=== PATIENT | female | born 1970 | race Caucasian/White ===

== ENCOUNTER → 2018-05-15 08:03 | Outpatient (CLI) | payer OTHER, SELFPAY ==
--- NOTE | 2018-05-15 08:04 | ECHOD_ITS ---
Reason For Study: ARRHYTHMIA Procedure This was a 2D Doppler, Color Flow transthoracic echocardiogram. Exam performed in department. Left Ventricle Normal size and thickness. The estimated ejection fraction is 55 %. Stage 1 diastolic dysfunction. No regional wall motion abnormalities noted. Right Ventricle Normal size and thickness. Normal systolic function. Atria Normal left atrium. Normal right atrium. Normal atrial septum. Mitral Valve The mitral valve is structurally normal. No prolapse or stenosis seen. Trivial mitral valve insufficiency. Tricuspid Valve Normal tricuspid valve. Trivial tricuspid valve insufficiency. Right ventricular systolic pressure estimated to be 17 mmHg. Aortic Valve Trisinus/trileaflet aortic valve. Normal aortic valve. Pulmonic Valve Normal pulmonic valve. Great Vessels Normal aortic root. Normal arch. Normal inferior vena cava. Inferior vena cava collapse with sniff. Pericardium/Pleural No pericardial effusion. MMode/2D Measurements & Calculations LVIDd: 4.6 cm IVSd: 0.93 cm Ao root diam: 2.5 cm LVIDs: 3.3 cm LVPWd: 0.93 cm LA dimension: 3.4 cm RVDd: 2.6 cm FS: 27.3 % LAV(MOD-bp): 33.6 ml LA A4 area: 12.7 cm2 RA A4 area: 9.9 cm2 LAV(MOD-bp) Indexed: 19.3 ml/m2 LAV(MOD-sp2): 32.0 ml LAV(MOD-sp4): 32.0 ml Doppler Measurements & Calculations MV E max efra: 57.0 cm/sec Lat Peak E' Efra: 6.1 cm/sec Med Peak E' Efra: 6.5 cm/sec MV A max efra: 72.1 cm/sec E/E' lat: 9.3 E/E' med: 8.8 MV E/A: 0.79 Ao V2 max: 116.1 cm/sec LV V1 max: 93.6 cm/sec PA V2 max: 86.5 cm/sec Ao max P.4 mmHg LV V1 max P.5 mmHg TR max efra: 172.4 cm/sec TR max P.9 mmHg Interpretation Summary The estimated ejection fraction is 55 %. Right ventricular systolic pressure estimated to be 17 mmHg. Stage 1 diastolic dysfunction. There is no comparison study available. The study was technically difficult. Ordering Physician: Jon Fonseca Referring Physician: Hermila Browning Performed By: Genoveva Pedro, NICOLA, RVT
== END ==
PROVIDERS: Family Provider Physician Assistant; PCP Physician Assistant; Referring Provider Internal Medicine Cardiovascular Disease; Visit Provider Internal Medicine Cardiovascular Disease
DX: R00.2 Palpitations (principal); I45.6 Pre-excitation syndrome; Z82.49 Family history of ischemic heart disease and other diseases of the circulatory system
CPT/HCPCS: 93306

== ENCOUNTER → 2018-05-22 10:40 | Outpatient (CLI) | payer OTHER, SELFPAY ==
--- NOTE | 2018-05-22 10:41 | STEWCON_ITS ---
Reason For Study: FAMILY HX Stress Results Protocol: Jhony Protocol Maximum Predicted HR: 175 bpm Target HR: 149 bpm% Max imum Predicted HR: 102 % DurationHeart Rate Stage (mm:ss) (bpm) BPCom ment BASELINE 85 122/82 0.2 ML DEFINITY STAGE 1 3:00 12 2 130/70 STAGE 2 3:00 15 0 142/60 STAGE 3 3:00 17 9 150/620.2 ML DEFINITY RECOVERY 105 120/8 0 Stress Duration: 9:00 mm:ss Maximum Stress HR: 179 bpm Baseline Echocardiogram Findings The estimated ejection fraction is 65 %. Stress Echo Wall motion Data Resting WMIntermediate WMStress WM Resting Wall Motion Wall Motion Stress No regional wall motion No regional wall motion abnormalities noted. abnormalities noted. EKG Data The baseline ECG displays normal sinus rhythm. The patient exercised according to the regular Jhony protocol for a total duration of 9:00. The maximum heart rate attained was 190 beats per minute. This was 108% of maximum predicted heart rate. The patient exercised into stage 4 of the Jhony protocol. During stress, there were no ST or T wave changes noted to suggest ischemia. During dobutamine infusion, there were no ST or T wave changes noted to suggest ischemia. No clinical angina was noted. Interpretation Summary There is no comparison study available. Contrast injection was performed. The study was technically difficult. The estimated ejection fraction is 65 %. Normal adequate treadmill echocardiogram. Negative for ischemia by EKG and echocardiographic criteria. No anginal symptoms noted. No arrhythmias noted. Appropriate blood pressure response to exercise. Average exercise capacity for age. Final LVEF of 65%. Decreased sensitivity due to poor echo windows requiring Definity enhancement. Test terminated due to dyspnea and leg fatigue. Ordering Physician: Jon Fonseca Referring Physician: Jon Fonseca Performed By: Mercy Martin, NICOLA, RVT
== END ==
PROVIDERS: Family Provider Physician Assistant; PCP Physician Assistant; Referring Provider Internal Medicine Cardiovascular Disease; Visit Provider Internal Medicine Cardiovascular Disease
DX: E78.5 Hyperlipidemia, unspecified (principal); I45.6 Pre-excitation syndrome; R00.2 Palpitations; Z82.49 Family history of ischemic heart disease and other diseases of the circulatory system
CPT/HCPCS: 93017; 93350; J7030; Q9957; A4216; C8928

== ENCOUNTER → 2018-06-16 20:36 | Outpatient (CLI) | payer OTHER, SELFPAY | PROVIDERS: Family Provider Physician Assistant; PCP Physician Assistant; Visit Provider Internal Medicine Cardiovascular Disease | DX: R06.83 Snoring (principal); R00.2 Palpitations; R06.81 Apnea, not elsewhere classified | CPT/HCPCS: 95810 ==

== ENCOUNTER → 2018-07-06 12:17 | Outpatient (CLI) | payer OTHER, SELFPAY ==
[2018-07-03 12:44] VITALS: BMI 27.8
[2018-07-06 13:20] LABS: AST(SGOT) 16 U/L (15-37); Alanine Aminotransfer ALT/SGPT 26 U/L (13-56); Albumin, Serum 3.9 g/dL (3.2-5.0); Alkaline Phosphatase 70 U/L (45-117); Bilirubin, Direct 0.14 mg/dL (0.00-0.30); Cholesterol 166 mg/dL (200); Globulin 3.5 g/dL (2.2-4.2); High Density Lipoprotein 51 mg/dL; Protein, Total 7.4 g/dL (6.4-8.2); Triglycerides 68 mg/dL; Very Low Density Lipoprotein 14 mg/dL (5-40)
== END ==
PROVIDERS: Family Provider Physician Assistant; PCP Physician Assistant; Referring Provider Internal Medicine Cardiovascular Disease; Visit Provider Internal Medicine Cardiovascular Disease
DX: E78.5 Hyperlipidemia, unspecified (principal); Z82.49 Family history of ischemic heart disease and other diseases of the circulatory system
CPT/HCPCS: 36415; 80061; 80076

== ENCOUNTER → 2018-07-31 12:58 | Outpatient (CLI) | payer OTHER, SELFPAY ==
[2018-07-03 12:44] VITALS: BMI 27.8
--- NOTE | 2018-08-02 11:15 | PFT ---
INTRODUCTION: The patient is a 48-year-old female who presents for pulmonary function testing secondary to a diagnosis of the echo use. Respiratory therapy reports good patient effort. Bronchodilators were used during testing. INTERPRETATION: Forced expiration spirometry demonstrates no evidence of a large airways obstructive ventilatory defect. There was no significant response to aerosolized bronchodilators, based upon strict ATS criteria. Spirograms are of good quality and plateau normally. The respiratory flow volume loop appears normal. Body plethysmography was performed and reveals lung volumes to be within normal limits. Diffusing capacity by single breath CO is also within normal limits at 95% of predicted. IMPRESSION: Grossly normal pulmonary function studies.
== END ==
PROVIDERS: Family Provider Physician Assistant; PCP Physician Assistant; Referring Provider Nurse Practitioner Acute Care; Visit Provider Nurse Practitioner Acute Care
DX: Z72.0 Tobacco use (principal)
CPT/HCPCS: 94060; 94726; 94729

== ENCOUNTER → 2018-10-17 15:07 | Outpatient (CLI) | payer OTHER, SELFPAY ==
[2018-09-20 09:47] VITALS: BMI 28.0
== END ==
PROVIDERS: Family Provider Physician Assistant; PCP Physician Assistant; Referring Provider Internal Medicine Critical Care Medicine; Visit Provider Internal Medicine Critical Care Medicine
DX: Z09 Encounter for follow-up examination after completed treatment for conditions other than malignant neoplasm (principal)
CPT/HCPCS: 98960; G0463

== ENCOUNTER → 2019-01-23 10:34 | Outpatient (CLI) | payer OTHER, SELFPAY ==
[2019-01-23 10:09] VITALS: BMI 27.1
[2019-01-23 11:56] LABS: AST(SGOT) 24 U/L (15-37); Alanine Aminotransfer ALT/SGPT 32 U/L (13-56); Albumin, Serum 4.1 g/dL (3.2-5.0); Alkaline Phosphatase 88 U/L (45-117); Bilirubin, Direct 0.12 mg/dL (0.00-0.30); Cholesterol 170 mg/dL (200); Globulin 3.4 g/dL (2.2-4.2); High Density Lipoprotein 54 mg/dL; Protein, Total 7.5 g/dL (6.4-8.2); Triglycerides 61 mg/dL; Very Low Density Lipoprotein 12 mg/dL (5-40)
== END ==
PROVIDERS: Family Provider Physician Assistant; PCP Physician Assistant; Referring Provider Internal Medicine Cardiovascular Disease; Visit Provider Radiology Diagnostic Radiology
DX: E78.5 Hyperlipidemia, unspecified (principal)
CPT/HCPCS: 36415; 80061; 80076

== ENCOUNTER → 2020-08-29 10:51 | Outpatient (CLI) | payer SELFPAY ==
[2020-08-29 10:17] VITALS: BMI 24.7
[2020-08-29 12:12] LABS: AST(SGOT) 13 U/L (15-37); Alanine Aminotransfer ALT/SGPT 22 U/L (13-56); Albumin, Serum 3.8 g/dL (3.2-5.0); Alkaline Phosphatase 70 U/L (45-117); Bilirubin, Direct 0.07 mg/dL (0.00-0.30); Cholesterol 171 mg/dL (200); Globulin 3.5 g/dL (2.2-4.2); High Density Lipoprotein 63 mg/dL; Protein, Total 7.3 g/dL (6.4-8.2); Triglycerides 43 mg/dL; Very Low Density Lipoprotein 9 mg/dL (5-40)
== END ==
PROVIDERS: PCP Physician Assistant; Referring Provider Physician Assistant Medical; Visit Provider Physician Assistant Medical
DX: E78.5 Hyperlipidemia, unspecified (principal)
CPT/HCPCS: 36415; 80061; 80076

== ENCOUNTER → 2022-02-12 | Outpatient (REF) | payer SELFPAY ==
[2022-02-12 11:10] LABS: Absolute Lymphocyte Count 1.67 X10^3/uL (0.83-4.51); Absolute Neutrophil Count 4.5 X10^3/uL (2.0-7.7); Basophil# 0.02 X10^3/uL; Basophil% 0.3 % (0-1); Eosinophil# 0.04 X10^3/uL; Eosinophils% 0.6 % (0-5); Hematocrit 46.9 % (37-47); Hemoglobin 15.4 g/dL (12.0-15.0); Lymphocyte # 1.67 X10^3/ul; Lymphocyte % 24.7 % (19-41); Mean Corp Hgb Conc 32.8 g/dL (32-36); Mean Corpuscular Hgb 30.4 pg (27.0-32.0); Mean Corpuscular Volume 92.7 fL (81-99); Mean Platelet Vol. 10.3 fl (6.2-12.0); Monocyte# 0.53 X10^3/uL; Monocyte% 7.9 % (0-10); NRBC Flagged by Analyzer 0 % (0-5); Neutrophil # 4.47 X10^3/uL (2.7-7.7); Neutrophil % 66.2 % (47-70); Platelet Count 276 K/mm3 (150-450); RBC Distribution Width CV 13.4 % (11.6-14.6); RBC Distribution Width SD 46.1 fl (35.1-43.9); Red Blood Count 5.06 M/mm3 (4.2-5.4); White Blood Count 6.8 K/mm3 (4.4-11.0)
[2022-02-12 11:15] LABS: ALB/GLOB Ratio 1.3 RATIO (0.9-2.4); AST(SGOT) 15 U/L (15-37); Alanine Aminotransfer ALT/SGPT 22 U/L (13-56); Albumin, Serum 4.1 g/dL (3.2-5.0); Alkaline Phosphatase 70 U/L (45-117); Anion Gap 6 (5-15); BUN 12 mg/dL (7-18); BUN/Creat Ratio 19.3 RATIO (10-20); Bilirubin, Direct 0.11 mg/dL (0.00-0.30); Calcium,Total 9.2 mg/dL (8.5-10.1); Chloride 106 mmol/L (98-107); Cholesterol 144 mg/dL (200); Creatinine, Serum 0.62 mg/dL (0.55-1.02); EST Glomerular Filtration Rate 108 mL/min (>60); Est Glom Filt Rate - Afr Amer 131 mL/min (>60); Globulin 3.2 g/dL (2.2-4.2); Glucose 94 mg/dL (74-106); High Density Lipoprotein 47 mg/dL; LDH 168 U/L (84-246); Phosphorus 3.8 mg/dL (2.5-4.9); Potassium 4.2 mmol/L (3.5-5.1); Protein, Total 7.3 g/dL (6.4-8.2); Sodium Level 140 mmol/L (136-145); Triglycerides 56 mg/dL; Uric Acid 3.8 mg/dL (2.6-6.0); Very Low Density Lipoprotein 11 mg/dL (5-40)
== END | disposition home or self-care (01) ==
LOC: LAB 09:54
PROVIDERS: PCP Physician Assistant; Visit Provider Physician Assistant
DX: Z00.00 Encounter for general adult medical examination without abnormal findings (principal)

== ENCOUNTER → 2023-08-24 | Outpatient (CLI) | payer OTHER, SELFPAY ==
--- OUTSIDE RECORDS SUMMARY | 2023-08-24 13:33 | XMS RPT_ITS | CCD ---
Author Name Unknown Address [address] [place] [address] Organization [facility] Care Team Providers Care Er Manager Name Role Phone EMPLOYEE, HEALTH Unavailable Unavailable EMPLOYEE, HEALTH Unavailable Unavailable EMPLOYEE, HEALTH Unavailable Unavailable DIEGO MERRITT S Admitting Unavailable DIEGO MERRITT S Attending Unavailable ANNE COLON Referring Unavailable GLO MERRITTS S Primary Care Unavailable ANNE COLON Consulting Unavailable PROVIDER, UNKNOWN Consulting Unavailable PROVIDER, UNKNOWN Consulting Unavailable PROVIDER, UNKNOWN Consulting Unavailable Hermila Browning PA-C Unavailable Hermila Browning PA-C Unavailable Cardiology Provider Unavailable Unavailable Ida LOPES, Nia Unavailable Unavailable Liyah COUNSEL, Eli Unavailable Kaiden WESTON, Teo Marquez Unavailable Joshua YEPEZ, Darcie Davila Unavailable Unavailable Ismael CHON, Mia Unavailable Unavailable Anne Colon MD Unavailable Anthony LOPES, Cassandra Diana Unavailable Unavaila ble Rayray COUNSEL, Esvin Unavailable Unavailable Severo COUNSEL, Mariam K Unavailable Unavai tony Palafox COUNSEL, Rafaeal Moreno Unavailable Unavailab le Rakesh COUNSEL, Joy Charles Unavailable Unavailab ben Nazario LPN, Zaira Unavailable Unavailiman Fenton COUNSEL, Kayli Walker Unavailable Unavaila ble Unavailable Unavailable Medications Current Medications Medication Drug Class(es) Dates Sig (Normalized) Sig (Original) atorvastatin 10 mg oral tablet (1 source) HMG-CoA Reductase Inhibitor Start: 04-29-2023 atorvastatin 10 mg tablet ; 1 (one) tablet daily for 0 days Quantity: 90 {Tablet} Refills: 3 Ordered: 29-Apr-2023 CLAY Browning Start: 29-Apr-2023 citalopram 20 mg oral tablet (3 sources) Serotonin Reuptake Inhibitor Start: 12-17-2021 citalopram 20 mg tablet ; 1 Tablet daily for 0 days Quantity: 90 {Tablet} Refills: 1 Ordered: 29-Apr-2023 CLAY Browning Start: 29-Apr-2023 Completed/Discontinued Medications Medication Drug Class(es) Dates Sig (Normalized) Sig (Original) 12 hr buPROPion hydrochloride 150 mg extended release oral tablet (1 source) Aminoketone Start: 11-30-2018 End: 02-12-2020 take 1 tablet by mouth once daily Wellbutrin SR 150 MG Oral Tablet Extended Release 12 Hour ; 1 Tablet daily for 90 days Quantity: 90 {Tablet} Refills: 1 Ordered: 12-Feb-2020 LUCHO Guevara Start: 30-Nov-2018 End: 12-Feb-2020 Status: Inactive cholecalciferol 0.05 mg oral capsule (1 source) Vitamin D take 1 capsule by mouth once daily VITAMIN D, 2000UNIT (Oral Capsule) ; 1 daily (2000 UNIT) Status: Inactive permethrin 50 mg/ml topical cream (1 source) Pyrethroid Start: 03-09-2013 End: 05-07-2014 ELIMITE, 5% (External Cream) ; 1 application(s) to entire body from neck to toes at bedtime, rinse off in morning for 0 days Quantity: 2 {ounce(s)} Refills: 2 Ordered: 07-May-2014 LUCHO Fenton Start: 09-Mar-2013 End: 07-May-2014 Status: Inactive VITAMINS (PO Tablet) (1 source) take 1 tablet by mouth once daily VITAMINS (PO Tablet) ; 1 daily Status: Inactive sertraline 50 mg oral tablet (2 sources) Serotonin Reuptake Inhibitor Start: 02-12-2020 End: 04-05-2020 take 1 tablet by mouth once daily Sertraline HCl 50 MG Oral Tablet ; 1 (one) Tablet daily for 0 days Quantity: 90 {Tablet} Refills: 1 Ordered: 05-Apr-2020 Start: 12-Feb-2020 End: 05-Apr-2020 Status: Inactive Problems Active Problems Problem Classification Problem Date Documented Da te Episodic/Chronic Anxiety disorders (3 sources) Anxiety; Translations: [Anxiety disorder, unspecified] 04-29-2023 Chronic Diabetes mellitus without complication (4 sources) Hyperglycemia; Translations: [Hyperglycemia, unspecified] 04-29-2023 Episodic Disorders of lipid metabolism (7 sources) Hyperlipidemia; Translations: [Hyperlipidemia, unspecified] 04-29-2023 Chronic Inflammation; infection of eye (except that caused by tuberculosis or sexually transmitteddisease) (1 source) Conjunctivitis; Translations: [Other mucopurulent conjunctivitis, unspecified eye] 07-18-2015 Episodic Mood disorders (16 sources) Depressive disorder; Translations: [Depressive disorder, not elsewhere classified] 04-29-2023 Chronic Other infections; including parasitic (1 source) Scabies 03-09-2013 Episodic Other screening for suspected conditions (not mental disorders or infectious disease) (9 sources) Patient encounter status; Translations: [Encounter for screening for malignant neoplasm of colon] 04-29-2023 Episodic Residual codes; unclassified (4 sources) Obstructive sleep apnea syndrome; Translations: [Obstructive sleep apnea (adult) (pediatric)] 04-29-2023 Chronic Residual codes; unclassified (3 sources) Family history of cardiac disorder; Translations: [Family history of ischemic heart disease and other diseases of the circulatory system] 04-29-2023 Episodic Unclassified (1 source) Unknown / UNK(Unknown) Onset: 02-09-2017 Unclassified (1 source) deliveries 04-29-2023 Past or Other Problems Problem Classification Problem Date Documented Date Episodic/Chronic Mood disorders (1 source) Mood disorders 06-23-2011 Unclassified (1 source) ALLERGIC REACTION/TRIAGE Onset: 02-09-2017 Unclassified (1 source) Well adult female - The patient feels well with no complaints, has good energy level and is sleeping well. The patient has a balanced diet and takes supplemental vitamins. The patient does not exercise. The patient sleeps 8 hours per night. Note for Well adult female : Pt is only having occasional periods, some hot flashes and insomnia - mild and manageable. 04-29-2023 Unclassified (1 source) Well adult female - The patient feels well with no complaints, has good energy level and is sleeping well. The first day of the last menstrual period was : (12/05/2021). The current method of contraception is: tubal ligation. The patient has a balanced diet and takes supplemental vitamins. The patient exercises 3 - 4 times per week (2-3). The patient sleeps 9 hours per night. 12-17-2021 Unclassified (1 source) Follow up for multiple chronic conditions - The patient is here for follow-up of depression (just got changed to wellbutrin about 1 -2 wks ago, is supposed to be taking it two times daily but states that she can't take it bid - she couldn't sleep and plus had too much energy), hyperlipidemia and other condition(s) (hyperglycemia). The patient always takes the prescribed medications. No side effects noted. The patient has an active lifestyle but no regular exercise program. The patient's dietary compliance is fairly good usually adhering to recommendations. The patient states that breathing effort is stable, there is no recent angina or dyspnea, there are no vision changes or weakness, mood is unchanged (She stopped her sertraline x 1 day (no taper) and then started wellbutrin (started immediately on the 150mg BID dosing). She started on the wellbutrin to help her quit smoking - is already down to 1 cig/day. Feeling irritable right now.) and they do not have headaches. Note for Multiple chronic conditions follow-up : Last office visit 04/19/2018. 10-02-2018 Unclassified (1 source) [ADDITIONAL REASON] Transition into care - The patient is transitioning into care from another physician (05/02/2018 bcnupt14/3/18 pulmonology) and a summary of care was reviewed. 10-02-2018 Unclassified (1 source) Well adult female - The patient feels well with no complaints, has good energy level and is sleeping well. The first day of the last menstrual period was : (month ago and states that it is regular. She has female in kassandra 2014 .). The patient has a balanced diet and takes supplemental vitamins (sometimes). The patient does not exercise. The patient sleeps 8 hours per night. 04-19-2018 Unclassified (1 source) Well Adult, female - The patient feels well with no complaints, has good energy level and is sleeping well. The first day of the last menstrual period was : (09/2013-). The patient has a balanced diet and takes supplemental vitamins. The patient exercises 3 - 4 times per week. The patient sleeps 7 hours per night. Note for Well Adult, female : Work insurance physical. 05-07-2014 Unclassified (1 source) Rash - The onset of the rash has been acute and has been occurring in a persistent pattern for 3 weeks. The course has been increasing. The rash is characterized as red and raised above the skin (fine). The rash was first seen on the upper extremity (left hand). It spread to the entire body, the trunk and the upper extremity. There has been associated itching. There has been associated itching, while there has been no fever. 03-09-2013 Unclassified (1 source) Anxiety - The onset of the anxiety has been sudden and has been occurring in an intermittent pattern for 15 years. The course has been constant. The anxiety is characterized as apprehension (wakes in middle of night with heart pounding) and nervousness. There are no specific phobias. There were no precipitating factors. The symptoms have been associated with agitation, lightheadedness, nausea and palpitations. 05-28-2011 Results Test Name Value Interpretation Reference Range Facil ity Vital Signs Date Time Vital Sign Value Performing Clinician Delaneyi rafael 04-29-2023 14:040 Body height 162.56 cm Joy Cameron LPN [facility], [facility].; [facility], [facility]. 04-29-2023 14:040 Body mass index (BMI) [Ratio] 26.43 kg/m2 Joy Cameron LPN [facility], [facility].; [facility], [facility]. 04-29-2023 14: Body surface area Derived from formula 1.75 m2 Joy Cameron LPN [facility], [facility].; [facility], [facility]. 04-29-2023 14:040 Body weight 69.85 kg Joy Cameron LPN [facility], [facility].; [facility], [facility] 04-29-2023 14:040 Diastolic blood pressure 72 mm[Hg] Joy Cameron LPN [employer].; [employer]. Encounters Encounter Date Encounter Type Care Provider Facility Start: 04-29-2023 End: 04-29-2023 Manual pelvic examination Joy Cameron LPN [facility].; [employer]. Start: 04-29-2023 End: 04-29-2023 Patient encounter procedure Hermila Browning PA-C Work Phone: [facility]. Start: 01-25-2023 End: 01-25-2023 Orders Hermila Browning PA-C Work Phone: [employer]. Start: 12-17-2021 End: 12-17-2021 Patient encounter procedure Hermila Browning PA-C Work Phone: [employer]. Start: 12-17-2021 End: 12-17-2021 Patient encounter status Hermila Browning PA-C Work Phone: [employer].; [employer]. Start: 07-30-2020 End: 07-30-2020 Medication Hermila Browning PA-C Work Phone: [employer]. Start: 10-26-2019 End: 10-26-2019 Medication Hermila Browning PA-C Work Phone: [employer]. Start: 01-10-2019 End: 01-10-2019 Telephone follow-up Hermila Browning PA-C Work Phone: [employer]. Start: 01-09-2019 End: 01-09-2019 Emergency department patient visit DIEGO Maxim [facility] Start: 11-30-2018 End: 11-30-2018 Medication Hermila Browning PA-C Work Phone: [employer]. Start: 11-01-2018 End: 11-01-2018 Medication Hermila Browning PA-C Work Phone: [employer]. Start: 10-02-2018 End: 10-02-2018 Office outpatient visit 15 minutes Hermila Browning PA-C Work Phone: [employer]. Start: 04-19-2018 End: 04-19-2018 Patient encounter procedure Hermila TOBARC Work Phone: [employer].; [employer] Start: 04-19-2018 End: 04-19-2018 Periodic preventive med est patient 40-64yrs Hermila Browning PA-C Work Phone: [employer]. Start: 04-11-2017 End: 04-11-2017 Historical Summary Hermila Browning PA-C Work Phone: [employer]. Start: 03-31-2017 End: 03-31-2017 Orders Hermila Browning PA-C Work Phone: [employer]. Start: 03-21-[address]EMPLOYEE [facility] Start: 03-17-2017 End: 03-17-2017 Orders Hermila MERLOS-C Work Phone: [employer]. Start: 02-09-2017 Emergency department patient visit Facility:[facility] Start: 12-31-2016 End: 12-31-2016 Office outpatient visit 15 minutes Hermila Browning PA-C Work Phone: [employer]. Start: 07-18-2015 End: 07-18-2015 Medication Hermila Browning PA-C Work Phone: [employer]. Start: 05-21-2015 End: 05-21-2015 Patient encounter procedure Hermila Browning PA-C Work Phone: [employer]. Start: 05-20-2015 End: 05-20-2015 Historical Summary Hermila Browning PA-C Work Phone: [employer]. Start: 05-07-2014 End: 05-07-2014 Medical examinations/reports status Hermila Haganer PA-C Work Phone: [employer].; [facility] Start: 05-07-2014 End: 05-07-2014 Patient encounter procedure Hermila Browning PA-C Work Phone: [employer] Start: 03-09-2013 End: 03-09-2013 Patient encounter procedure Hermila Browning PA-C Work Phone: [employer] Start: 07-05-2012 End: 07-05-2012 Patient encounter procedure Hermila Browning PA-C Work Phone: [employer] Start: 06-18-2011 End: 06-23-2011 Patient encounter procedure Hermila Browning PA-C Work Phone: [employer] Start: 05-28-2011 End: 05-28-2011 Patient encounter procedure Hermila Browning PA-C Work Phone: [employer] Patient encounter status Joy francis LPN [employer]; [employer] Procedures Date Procedure Procedure Detail Performing Clinician Start: 04-29-2023 End: 04-29-2023 Depression screening Hermila Haganer PA -C Work Phone: Start: 04-29-2023 End: 04-29-2023 Scr dep neg, no plan reqd Hermila Hagan er PA-C Work Phone: Start: 12-17-2021 End: 12-17-2021 Depression screening Hermila Haganer PA -C Work Phone: Start: 12-17-2021 End: 12-17-2021 Scr dep neg, no plan reqd Hermila Molina Palm er PA-C Work Phone: Start: 07-06-2018 End: 07-06-2018 Lipid panel Joy Walker Plan of Treatment Date Care Activity Detail Author Start: 04-29-2023 Oncology colorectal screening gaye 10 dna markrs COLOGUARD COLON CANCER SCREENING USING STOOL DNA AT POINT OF CARE (55396) Start: 29-Apr-2023 Intent [employer].; [employer]. Start: 01-25-2023 Comprehensive metabo lic panel CMP w/ GFR* ([id number]) Start: 25-Jan-2023 Request [employer] [employer]. Start: 01-25-2023 Lipid panel LIPID PANEL ([id number]) Start: 25-Jan-2023 Request [employer] [employer]. Start: 01-25-2023 Screening mammograph y bi 2-view breast inc cad Mammogram Bilateral Screening ([id number]) Start: 25-Jan-2023 Intent [employer] [employer] Immunizations Immunization Date Immunization Notes Care Provider Fa cility influenza, seasonal, injectable Hermila Browning PA-C Work Phone: [employer].; [employer] Payers Date Payer Category Payer Unknown [id number] 1970 Unknown [id number] Unknown [id number] Unknown [facility] Social History Date Type Detail Facility Alcohol Use: Alcohol Use: ; Drinks wine. [employer]. Caffeine Use Caffeine Use [employer]. Tobacco Use: Tobacco Use: ; C urrent every day smoker. [employer] [employer]. Female [employer]. Work Phone: Drinks wine [employer] [employer]. Work Phone: Smokes tobacco daily [employer].; [employer]. Work Phone: Ex-smoker [employer].; [employer]. Work Phone: Summary Purpose Family History Colon Cancer Status:Active Comments:grandmo ther Coronary Artery Disease Status:Active Comments :Father. Mother. grandfather, uncle;Dad at age 51 from [place]. Diabetes Mellitus Type II Status:Active Commen ts:Father. Hypertension Status:Active Comments:Father. grandfather,uncle Advance Directives No Advanced Directives Records FoundNo Advanced Directives Records FoundNo Advanced Directives Records FoundNo Advanced Directives Records Found Additional Source Comments INFORMATION SOURCE (unrecogn ized section and content) DATE CREATED AUTHOR AUTHOR'S ORGANIZ ATION 01/25/2018 [facility] DATE CREATED AUTHOR AUTHOR'S ORGANIZ ATION 03/13/2019 [facility] DATE CREATED AUTHOR AUTHOR'S ORGANIZ ATION 05/07/2023 [facility] FOR RECORDS PERTAINING TO PATIENTS WHO ARE OR HAVE BEEN ENROLLED IN A CHEMICAL DEPENDENCY/SUBSTANCEABUSE PROGRAM, SOME INFORMATION MAY BE OMITTED. This clinical summary was aggregated from multiple sources. Caution should be exercised in using it in the provision of clinical care. This summary normalizes information from multiple sources, and as a consequence, information in this document may materially change the coding, format and clinical context of patient data. In addition, data may be omitted in some cases. CLINICAL DECISIONS SHOULD BE BASED ON THE PRIMARY CLINICAL RECORDS. [facility] [employer] provides no warranty or guarantee of the accuracy or completeness of information in this document.
[2023-08-24 14:18] LABS: Absolute Lymphocyte Count 1.59 X10^3/uL (0.83-4.51); Basophil# 0.02 X10^3/uL; Basophil% 0.4 % (0-1); Eosinophil# 0.04 X10^3/uL; Eosinophils% 0.8 % (0-5); Hematocrit 44.8 % (37-47); Hemoglobin 14.8 g/dL (12.0-15.0); Lymphocyte # 1.59 X10^3/ul (0.83-4.51); Lymphocyte % 31.7 % (19-41); Mean Corpuscular Hgb 30.2 pg (27.0-32.0); Mean Corpuscular Volume 91.4 fL (81-99); Mean Platelet Vol. 10.3 fl (6.2-12.0); NRBC Flagged by Analyzer 0 % (0-5); Neutrophil # 2.97 X10^3/uL (2.7-7.7); Neutrophil % 59.1 % (47-70); Platelet Count 264 K/mm3 (150-450); RBC Distribution Width SD 44.1 fl (35.1-43.9)
[2023-08-24 15:20] LABS: ALB/GLOB Ratio 1.2 RATIO (0.9-2.4); AST(SGOT) 16 U/L (15-37); Alanine Aminotransfer ALT/SGPT 29 U/L (13-56); Albumin, Serum 4.3 g/dL (3.2-5.0); Alkaline Phosphatase 83 U/L (45-117); Anion Gap 3 (5-15); BUN 12 mg/dL (7-18); BUN/Creat Ratio 19.2 RATIO (10-20); CPK Total, Creatine Kinase 59 U/L (26-192); Calcium,Total 9.4 mg/dL (8.5-10.1); Chloride 108 mmol/L (98-107); Cholesterol 181 mg/dL (200); Creatinine, Serum 0.62 mg/dL (0.55-1.02); EST Glomerular Filtration Rate 107 mL/min (>60); Est Glom Filt Rate - Afr Amer 129 mL/min (>60); Globulin 3.5 g/dL (2.2-4.2); Glucose 93 mg/dL (74-106); High Density Lipoprotein 72 mg/dL; Potassium 3.7 mmol/L (3.5-5.1); Protein, Total 7.8 g/dL (6.4-8.2); Sodium Level 136 mmol/L (136-145); Thyroid Stim Hormone (TSH) 0.94 uIU/mL (0.358-3.74); Triglycerides 64 mg/dL; Very Low Density Lipoprotein 13 mg/dL (5-40)
== END | disposition home or self-care (01) ==
PROVIDERS: PCP Physician Assistant; Referring Provider Internal Medicine Cardiovascular Disease; Visit Provider Internal Medicine Cardiovascular Disease
DX: E78.5 Hyperlipidemia, unspecified (principal); R00.2 Palpitations; G47.33 Obstructive sleep apnea (adult) (pediatric); I45.6 Pre-excitation syndrome; Z72.0 Tobacco use; R07.9 Chest pain, unspecified
CPT/HCPCS: 36415; 80053; 80061; 82550; 84443; 85025

== ENCOUNTER → 2023-09-30 | Outpatient (CLI) | payer OTHER, SELFPAY ==
--- NOTE | 2023-09-30 13:02 | ECHOD_ITS ---
Reason For Study: Palpitations Procedure This was a 2D Doppler, Color Flow transthoracic echocardiogram. Exam performed in department. Left Ventricle Normal size and thickness. Mild global left ventricular systolic dysfunction. The left ventricular ejection fraction is 45 %. Normal diastololic function. Right Ventricle Normal right ventricle. Atria The left and right atria are normal. Mitral Valve Trivial mitral valve insufficiency. Tricuspid Valve Trivial tricuspid valve insufficiency. Unable to estimate RV systolic pressure due to insufficient tricuspid regurgitant envelope. Aortic Valve Trisinus/trileaflet aortic valve. Pulmonic Valve The pulmonic valve is not well visualized. Great Vessels Normal sized aortic root. Pericardium/Pleural No pericardial effusion. MMode/2D Measurements & Calculations LVIDd: 4.8 cm IVSd: 0.87 cm Ao root diam: 2.6 cm LVIDs: 3.2 cm LVPWd: 0.75 cm LA dimension: 3.5 cm RVDd: 3.3 cm FS: 33.7 % LAV(MOD-bp): 46.6 ml LVAd ap4: 24.2 cm2 SV(MOD-sp4): 38.8 ml LAV(MOD-bp) Indexed: 26.6 ml/m2 LVLd ap4: 6.7 cm LAV(MOD-sp2): 48.9 ml EDV(MOD-sp4): 71.3 ml LAV(MOD-sp4): 42.4 ml EDV(sp4-el): 74.1 ml LVAs ap4: 14.7 cm2 LVLs ap4: 5.5 cm ESV(MOD-sp4): 32.5 ml ESV(sp4-el): 33.2 ml EF(MOD-sp4): 54.4 % EF(sp4-el): 55.3 % SV(sp4-el): 40.9 ml LA A4 area: 16.3 cm2 RA A4 area: 11.6 cm2 Time Measurements MV dec time: 0.16 sec Doppler Measurements & Calculations MV E max efra: 68.2 cm/sec Lat Peak E' Efra: 7.7 cm/sec Med Peak E' Efra: 8.0 cm/sec MV A max efra: 67.0 cm/sec E/E' lat: 8.8 E/E' med: 8.5 MV E/A: 1.0 MV V2 max: 73.5 cm/sec MV P1/2t max efra: 61.7 cm/sec Ao V2 max: 112.9 cm/sec MV max P.2 mmHg MV P1/2t: 51.6 msec Ao max P.1 mmHg MV V2 mean: 42.5 cm/sec Ao V2 mean: 77.8 cm/sec MV mean P.82 mmHg MV dec slope: 350.7 cm/sec2 Ao mean P.7 mmHg MV V2 VTI: 22.8 cm MVA(P1/2t): 4.3 cm2 Ao V2 VTI: 27.1 cm AV (velocity ratio): 0.79 LV V1 max: 86.5 cm/sec PA V2 max: 61.8 cm/sec LV V1 max P.0 mmHg LV V1 mean P.8 mmHg LV V1 mean: 64.0 cm/sec LV V1 VTI: 21.5 cm ECHO/Echo Complete Interpretation Summary Mild global left ventricular systolic dysfunction. The left ventricular ejection fraction is 45 %. Ordering Physician: Irving Thompson Referring Physician: Irving Thompson Performed By: Nirmal Chadwick RCS
--- OUTSIDE RECORDS SUMMARY | 2023-09-30 13:37 | XMS RPT_ITS | CCD ---
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 Name Role Phone EMPLOYEE, HEALTH Unavailable Unavailable EMPLOYEE, HEALTH Unavailable Unavailable EMPLOYEE, HEALTH Unavailable Unavailable DIEGO MERRITT S Admitting Unavailable DIEGO MERRITT S Attending Unavailable ANNE COLON Referring Unavailable GLO MERRITTS S Primary Care Unavailable ANNE COLON Consulting Unavailable PROVIDER, UNKNOWN Consulting Unavailable PROVIDER, UNKNOWN Consulting Unavailable PROVIDER, UNKNOWN Consulting Unavailable Hermila Browning PA-C Unavailable Hermila Browning PA-C Unavailable [phone] Cardiology Provider Unavailable Unavailable Ida LOPES, Nia Unavailable Unavailable Liyah CARDIOLOGY PHYSICIAN ASSISTANT, Eli Unavailable Kaiden WESTON, Teo Marquez Unavailable Joshua YEPEZ, Darcie Davila Unavailable Unavailable Ismael CHON, Mia Unavailable Unavailable Anne Colon MD Unavailable Anthony LOPES, Cassandra Diana Unavailable Unavaila ble Rayray CARDIOLOGY PHYSICIAN ASSISTANT, Esvin Unavailable Unavailable Severo CARDIOLOGY PHYSICIAN ASSISTANT, Mariam K Unavailable Unavai tony Palafox CARDIOLOGY PHYSICIAN ASSISTANT, Rafaela Moreno Unavailable Unavailab le Rakesh CARDIOLOGY PHYSICIAN ASSISTANT, Joy Charles Unavailable Unavailab ben Nazario LPN, Zaira Unavailable Unavailiman Fenton CARDIOLOGY PHYSICIAN ASSISTANT, Kayli Walker Unavailable Unavaila ble Unavailable Unavailable Medications Current Medications Medication Drug Class(es) Dates Sig (Normalized) Sig (Original) atorvastatin 10 mg oral tablet (2 sources) HMG-CoA Reductase Inhibitor Start: 04-29-2023 atorvastatin 10 mg tablet ; 1 (one) tablet daily for 0 days Quantity: 90 {Tablet} Refills: 3 Ordered: 29-Apr-2023 CLAY Browning Start: 29-Apr-2023 citalopram 20 mg oral tablet (6 sources) Serotonin Reuptake Inhibitor Start: 12-17-2021 citalopram 20 mg tablet ; 1 Tablet daily for 0 days Quantity: 90 {Tablet} Refills: 1 Ordered: 29-Apr-2023 CLAY Browning Start: 29-Apr-2023 Completed/Discontinued Medications Medication Drug Class(es) Dates Sig (Normalized) Sig (Original) 12 hr buPROPion hydrochloride 150 mg extended release oral tablet (2 sources) Aminoketone Start: 11-30-2018 End: 02-12-2020 take 1 tablet by mouth once daily Wellbutrin SR 150 MG Oral Tablet Extended Release 12 Hour ; 1 Tablet daily for 90 days Quantity: 90 {Tablet} Refills: 1 Ordered: 12-Feb-2020 LUCHO Guevara Start: 30-Nov-2018 End: 12-Feb-2020 Status: Inactive cholecalciferol 0.05 mg oral capsule (2 sources) Vitamin D take 1 capsule by mouth once daily VITAMIN D, 2000UNIT (Oral Capsule) ; 1 daily (2000 UNIT) Status: Inactive permethrin 50 mg/ml topical cream (2 sources) Pyrethroid Start: 03-09-2013 End: 05-07-2014 ELIMITE, 5% (External Cream) ; 1 application(s) to entire body from neck to toes at bedtime, rinse off in morning for 0 days Quantity: 2 {ounce(s)} Refills: 2 Ordered: 07-May-2014 LUCHO Fenton Start: 09-Mar-2013 End: 07-May-2014 Status: Inactive VITAMINS (PO Tablet) (2 sources) take 1 tablet by mouth once daily VITAMINS (PO Tablet) ; 1 daily Status: Inactive sertraline 50 mg oral tablet (4 sources) Serotonin Reuptake Inhibitor Start: 02-12-2020 End: 04-05-2020 take 1 tablet by mouth once daily Sertraline HCl 50 MG Oral Tablet ; 1 (one) Tablet daily for 0 days Quantity: 90 {Tablet} Refills: 1 Ordered: 05-Apr-2020 Start: 12-Feb-2020 End: 05-Apr-2020 Status: Inactive Problems Active Problems Problem Classification Problem Date Documented Da te Episodic/Chronic Anxiety disorders (6 sources) Anxiety; Translations: [Anxiety disorder, unspecified] 04-29-2023 Chronic Diabetes mellitus without complication (8 sources) Hyperglycemia; Translations: [Hyperglycemia, unspecified] 04-29-2023 Episodic Disorders of lipid metabolism (14 sources) Hyperlipidemia; Translations: [Hyperlipidemia, unspecified] 04-29-2023 Chronic Inflammation; infection of eye (except that caused by tuberculosis or sexually transmitteddisease) (2 sources) Conjunctivitis; Translations: [Other mucopurulent conjunctivitis, unspecified eye] 07-18-2015 Episodic Mood disorders (20 sources) Depressive disorder; Translations: [Depressive disorder, not elsewhere classified] 04-29-2023 Chronic Other infections; including parasitic (2 sources) Scabies 03-09-2013 Episodic Other screening for suspected conditions (not mental disorders or infectious disease) (18 sources) Patient encounter status; Translations: [Encounter for screening for malignant neoplasm of colon] 04-29-2023 Episodic Residual codes; unclassified (8 sources) Obstructive sleep apnea syndrome; Translations: [Obstructive sleep apnea (adult) (pediatric)] 04-29-2023 Chronic Residual codes; unclassified (6 sources) Family history of cardiac disorder; Translations: [Family history of ischemic heart disease and other diseases of the circulatory system] 04-29-2023 Episodic Unclassified (1 source) Unknown / UNK(Unknown) Onset: 02-09-2017 Unclassified (2 sources) deliveries 04-29-2023 Past or Other Problems Problem Classification Problem Date Documented Date Episodic/Chronic Mood disorders (2 sources) Mood disorders 06-23-2011 Unclassified (1 source) ALLERGIC REACTION/TRIAGE Onset: 02-09-2017 Unclassified (2 sources) Well adult female - The patient feels [...] insomnia - mild and manageable. 04-29-2023 Unclassified (2 sources) Well adult female - The patient feels [...] sleeps 9 hours per night. 12-17-2021 Unclassified (2 sources) Follow up for multiple chronic conditions - [...] : Last office visit 04/19/2018. 10-02-2018 Unclassified (2 sources) [ADDITIONAL REASON] Transition into care - The patient is transitioning into care from another physician (05/02/2018 [id number] pulmonology) and a summary of care was reviewed. 10-02-2018 Unclassified (2 sources) Well adult female - The patient feels [...] sleeps 8 hours per night. 04-19-2018 Unclassified (2 sources) Well Adult, female - The patient feels [...] female : Work insurance physical. 05-07-2014 Unclassified (2 sources) Rash - The onset of the rash [...] there has been no fever. 03-09-2013 Unclassified (2 sources) Anxiety - The onset of the anxiety [...] Body height 162.56 cm Joy Cameron LPN [facility], [facility].; [facility], [facility]. 04-29-2023 14:040 Body mass index (BMI) [Ratio] 26.43 kg/m2 Joy Cameron LPN [facility], [facility].; [facility], [facility]. 04-29-2023 14: Body surface area Derived from formula 1.75 m2 Joy Cameron LPN [facility], [facility].; [facility], [facility]. 04-29-2023 14:040 Body weight 69.85 kg Joy Cameron LPN [facility], [facility].; [facility], [facility] 04-29-2023 14:040 Diastolic blood pressure 72 mm[Hg] Joy Cameron LPN [facility] Encounters Encounter Date Encounter Type Care Provider Facility Start: 04-29-2023 End: 04-29-2023 Manual pelvic examination Joy Cameron LPN [facility]. Start: 04-29-2023 End: 04-29-2023 Patient encounter procedure Hermila Browning PA-C Work Phone: [facility]. Start: 01-25-2023 End: 01-25-2023 Orders Hermila Browning PA-C Work Phone: [facility]. Start: 12-17-2021 End: 12-17-2021 Patient encounter procedure Hermila Browning PA-C Work Phone: [facility]. Start: 12-17-2021 End: 12-17-2021 Patient encounter status Hermila Browning PA-C Work Phone: [facility] Start: 07-30-2020 End: 07-30-2020 Medication Hermila Browning PA-C Work Phone: [facility]. Start: 10-26-2019 End: 10-26-2019 Medication Hermila Browning PA-C Work Phone: [facility]. Start: 01-10-2019 End: 01-10-2019 Telephone follow-up Hermila Browning PA-C Work Phone: [facility]. Start: 01-09-2019 End: 01-09-2019 Emergency department patient visit DIEGO Maxim [facility] Start: 11-30-2018 End: 11-30-2018 Medication Hermila Browning PA-C Work Phone: [facility]. Start: 11-01-2018 End: 11-01-2018 Medication Hermila Browning PA-C Work Phone: [facility]. Start: 10-02-2018 End: 10-02-2018 Office outpatient visit 15 minutes Hermila Browning PA-C Work Phone: [facility]. Start: 04-19-2018 End: 04-19-2018 Patient encounter procedure Hermila TOBARC Work Phone: [facility] [employer] Start: 04-19-2018 End: 04-19-2018 Periodic preventive med est patient 40-64yrs Hermila Browning PA-C Work Phone: [facility]. Start: 04-11-2017 End: 04-11-2017 Historical Summary Hermila Browning PA-C Work Phone: [facility]. Start: 03-31-2017 End: 03-31-2017 Orders Hermila Browning PA-C Work Phone: [facility]. Start: 03-21-[address]EMPLOYEE [facility] Start: 03-17-2017 End: 03-17-2017 Orders Hermila MERLOS-C Work Phone: [facility]. Start: 02-09-2017 Emergency department patient visit Facility:[facility] Start: 12-31-2016 End: 12-31-2016 Office outpatient visit 15 minutes Hermila Browning PA-C Work Phone: [employer]. Start: 07-18-2015 End: 07-18-2015 Medication Hermila Browning PA-C Work Phone: [facility]. Start: 05-21-2015 End: 05-21-2015 Patient encounter procedure Hermila Browning PA-C Work Phone: [facility]. Start: 05-20-2015 End: 05-20-2015 Historical Summary Hermila Browning PA-C Work Phone: [facility]. Start: 05-07-2014 End: 05-07-2014 Medical examinations/reports status Hermila Haganer PA-C Work Phone: [facility] [employer] Start: 05-07-2014 End: 05-07-2014 Patient encounter procedure Hermila Browning PA-C Work Phone: [facility] Start: 03-09-2013 End: 03-09-2013 Patient encounter procedure Hermila Browning PA-C Work Phone: [facility] Start: 07-05-2012 End: 07-05-2012 Patient encounter procedure Hermila Browning PA-C Work Phone: [facility] Start: 06-18-2011 End: 06-23-2011 Patient encounter procedure Hermila Browning PA-C Work Phone: [facility] Start: 05-28-2011 End: 05-28-2011 Patient encounter procedure Hermila Browning PA-C Work Phone: [facility] Patient encounter status Joy francis LPN [facility]; [facility] Procedures Date Procedure Procedure Detail Performing Clinician [...] USING STOOL DNA AT POINT OF CARE (87974) Start: 29-Apr-2023 Intent [facility] [employer]. Start: 01-25-2023 Comprehensive metabo lic panel CMP w/ GFR* ([id number]) Start: 25-Jan-2023 Request [facility] Start: 01-25-2023 Lipid panel LIPID PANEL ([id number]) Start: 25-Jan-2023 Request [facility] [employer] Start: 01-25-2023 Screening mammograph y bi 2-view breast inc cad Mammogram Bilateral Screening ([id number]) Start: 25-Jan-2023 Intent [facility] [employer] Immunizations Immunization Date Immunization Notes Care Provider Fa cility influenza, seasonal, injectable Hermila Browning PA-C Work Phone: [facility] [place] Payers Date Payer Category Payer Unknown [id number] 1970 Unknown [id number] Unknown [id number] Unknown [facility] Social History Date Type Detail Facility Alcohol Use: Alcohol Use: ; Drinks wine. [facility] [employer] Caffeine Use Caffeine Use [facility] Tobacco Use: Tobacco Use: ; C urrent every day smoker. [facility]. Female [facility] Work Phone: Drinks wine [facility] [employer]. Work Phone: Smokes tobacco daily [facility] [employer] Work Phone: Ex-smoker [facility] [employer]. Work Phone: Summary Purpose Family History Colon Cancer Status:Active Comments:grandmo ther Coronary Artery Disease Status:Active Comments :Father. Mother. grandfather, uncle;Dad at age 51 from [place]. Diabetes Mellitus Type II Status:Active Commen ts:Father. Hypertension Status:Active Comments:Father. grandfather,uncle Colon Cancer Status:Active Comments:grandmo ther Coronary Artery Disease Status:Active Comments :Father. Mother. grandfather, uncle;Dad at age 51 from [place]. Diabetes Mellitus Type II Status:Active Commen ts:Father. Hypertension Status:Active Comments:Father. grandfather,uncle Advance Directives No Advanced Directives Records FoundNo Advanced Directives Records FoundNo Advanced Directives Records FoundNo Advanced Directives Records Found Additional Source Comments INFORMATION SOURCE (unrecogn ized section and content) DATE CREATED AUTHOR AUTHOR'S ORGANIZ ATION 01/25/2018 [facility] DATE CREATED AUTHOR AUTHOR'S ORGANIZ ATION 03/13/2019 [facility] DATE CREATED AUTHOR AUTHOR'S ORGANIZ ATION [...] BE BASED ON THE PRIMARY CLINICAL RECORDS. [employer] [facility]. provides no warranty or guarantee of the accuracy or completeness of information in this document.
== END | disposition home or self-care (01) ==
LOC: CVS 12:58
PROVIDERS: PCP Physician Assistant; Referring Provider Internal Medicine Cardiovascular Disease; Visit Provider Internal Medicine Cardiovascular Disease
DX: R00.2 Palpitations (principal); Z72.0 Tobacco use; E78.5 Hyperlipidemia, unspecified; G47.33 Obstructive sleep apnea (adult) (pediatric)
CPT/HCPCS: 93306

== ENCOUNTER → 2023-10-25 | Outpatient (CLI) | payer OTHER, SELFPAY ==
--- NOTE | 2023-10-25 13:36 | STE_ITS ---
Reason For Study: CHEST PAIN Stress Results Protocol: Jhony Protocol Maximum Predicted HR: 169 bpm Target HR: 144 bpm % Maximum Predicted HR: 107 % DurationHeart Rate Stage (mm:ss) (bpm) BP Comment BASELINE 69 122/78 STAGE 1 3:00 104 116/70 STAGE 2 3:00 120 142/78 STAGE 3 3:00 160 144/84NO CHEST PAIN, STAGE 4 1:00 181 / BASELINE 105 122/68 Stress Duration: 10:00 mm:ss Maximum Stress HR: 181 bpm Baseline Echocardiogram Findings Stress Echo Wall motion Data Resting WM Intermediate WM Stress WM Resting Wall Motion Wall Motion Stress Mild generalized hypokinesis. All segments hyperkinetic Estimated EF 45 to 50%. postexercise. Estimated EF 65%. EKG Data Normal sinus rhythm. Peak exercise ECG shows sinus tachycardia with no ischemic changes. ECHO/Stress Test Echo w/o Contrast Interpretation Summary Patient exercised on the treadmill according to Jhony protocol for 10 minutes. 107% of maximum predicted heart rate achieved. No ischemic ECG changes. Resting left ventricular systolic ejection fraction 45 to 50%. Poststress, all segments augment normally with a poststress ejection fraction of 65%. No echo or ECG evidence of ischemia. Ordering Physician: Irving Thompson Referring Physician: Irving Thompson Performed By: Marichuy Lopez ROBBIE
== END | disposition home or self-care (01) ==
LOC: CVS 13:30
PROVIDERS: PCP Physician Assistant; Referring Provider Internal Medicine Cardiovascular Disease; Visit Provider Internal Medicine Cardiovascular Disease
DX: R00.2 Palpitations (principal); R07.9 Chest pain, unspecified
CPT/HCPCS: 93017; 93350

== ENCOUNTER → 2023-10-27 | Outpatient (CLI) | payer OTHER, SELFPAY ==
--- NOTE | 2023-10-27 12:51 | CT_ITS ---
STUDY: CT CHEST WITH CONTRAST REASON FOR EXAM: Female, 53 years old. ABNORMAL ECHO RADIATION DOSAGE (If Supplied By Facility): CTDIvol = ( 31.97 ) mGy, DLP = ( 996.61 ) mGycm TECHNIQUE: Transaxial imaging was performed following intravenous administration of IV 75mL Isovue-370. Cardiac over read examination. Individualized dose optimization techniques were used for this CT. COMPARISON: No relevant priors. FINDINGS: CHEST Minimal increased markings at the lung bases suggestive of atelectasis. There is no demonstrated pleural abnormality. Minimal coronary artery calcification. Normal mediastinum. Normal hilar regions. Normal unenhanced pulmonary arteries. Normal aorta arch and descending thoracic aorta. Normal osseous structures. There is no demonstrated abnormality of the visualized upper abdomen. CT/Limited Chest CT Cardiac Only IMPRESSION: Minimal coronary artery calcification. Electronically Signed: Butch Becker MD at 14:24 EDT ,
[2023-10-27 13:05] VITALS: BP 117/79; PULSE 60; RESP 18; TEMP 35.8; O2SAT 98; BMI 26.5
[2023-10-27 13:30] VITALS: BP 101/57; PULSE 68
[2023-10-27] MEDS: Nitroglycerin SL (ED/IMG/CATH) 0.4 MG TABLET SL (13:30)
[2023-10-27] MEDS: 0.9% Saline Lock 10 ML Syringe IV (13:31)
[2023-10-27 13:35] VITALS: BP 101/57; PULSE 68; RESP 18
--- NOTE | 2023-10-28 07:17 | CCTA.WCONT ---
CCTA w/Cont Coronary Arteries Date of Study:: 10/27/23 Abnormal echo Coronary Calcium Scoring: High-resolution Computed Tomographic imaging of the chest was performed on [10/27/2023], with particular attention paid to the coronary arteries. Intravenous contrast agent was administered per protocol and images reconstructed and displayed. LEFT MAIN CORONARY ARTERY: This arises from the left coronary cusp. No significant stenosis is noted. [] LEFT ANTERIOR DESCENDING CORONARY ARTERY: This arises from the left main coronary artery. It gives off 2 diagonal branches. There is focal calcification noted in the proximal and mid regions which do not appear to be obstructive. Minimal atherosclerotic plaquing is noted. [] LEFT CIRCUMFLEX CORONARY ARTERY: This arises from the left main coronary artery and has 2 areas of coronary calcification which appeared to be nonobstructive and mild. Mild diffuse nonobstructive plaque is noted. [] RIGHT CORONARY ARTERY: Dominant vessel arising from the right coronary cusp with no significant atherosclerotic plaquing noted. [] CORONARY CALCIUM SCORE: Not performed Conclusion: Coronary CT angio with mild coronary calcification noted in the LAD and left circumflex region with mild to moderate atherosclerotic plaquing.
== END | disposition home or self-care (01) ==
LOC: CT 12:44
PROVIDERS: PCP Physician Assistant; Referring Provider Physician Assistant Medical; Visit Provider Physician Assistant Medical
DX: R94.39 Abnormal result of other cardiovascular function study (principal); I42.9 Cardiomyopathy, unspecified
CPT/HCPCS: 75574; 76380; Q9967

== ENCOUNTER 2024-02-28 10:57 | Outpatient (CLI) | payer OTHER, SELFPAY ==
--- NOTE | 2024-02-28 10:58 | ECHOL_ITS ---
Reason For Study: CHF Procedure This was a limited 2D transthoracic echocardiogram. Exam performed in department. Left Ventricle Normal LV size. Left ventricular systolic function is normal. The left ventricular ejection fraction is 65 %. No regional wall motion abnormalities noted. Right Ventricle Normal RV size. Normal systolic function. Atria Normal left atrium. Normal right atrium. Mitral Valve Normal mitral valve. Tricuspid Valve Normal tricuspid valve. Aortic Valve Normal aortic valve. Trisinus/trileaflet aortic valve. Pulmonic Valve Normal pulmonic valve. Great Vessels Normal aortic root. The pulmonary artery is normal size. Normal inferior vena cava. Pericardium/Pleural No pericardial effusion. MMode/2D Measurements & Calculations LVIDd: 4.6 cm IVSd: 0.77 cm Ao root diam: 2.6 cm LVIDs: 3.3 cm LVPWd: 0.78 cm RVDd: 3.2 cm FS: 28.8 % LAV(MOD-bp): 33.3 ml LVAd ap4: 23.6 cm2 LVAd ap2: 21.2 cm2 LAV(MOD-bp) Indexed: 19.7 ml/m2 LVLd ap4: 6.6 cm LVLd ap2: 6.9 cm LAV(MOD-sp2): 32.0 ml EDV(MOD-sp4): 70.4 ml EDV(MOD-sp2): 54.9 ml LAV(MOD-sp4): 32.5 ml EDV(sp4-el): 71.2 ml EDV(sp2-el): 55.6 ml LVAs ap4: 13.5 cm2 LVAs ap2: 12.0 cm2 LVLs ap4: 5.2 cm LVLs ap2: 5.4 cm ESV(MOD-sp4): 29.6 ml ESV(MOD-sp2): 23.0 ml ESV(sp4-el): 29.9 ml ESV(sp2-el): 22.6 ml EF(MOD-sp4): 58.0 % EF(MOD-sp2): 58.1 % EF(sp4-el): 58.0 % SV(MOD-sp4): 40.9 ml SV(MOD-sp2): 31.9 ml SV(sp4-el): 41.3 ml LA dimension(2D): 3.6 cm LA A4 area: 13.1 cm2 RA A4 area: 9.5 cm2 ECHO/Echo, Limited Study Interpretation Summary Normal LV size. Left ventricular systolic function is normal. The left ventricular ejection fraction is 65 %. The global longitudinal strain is normal. The global longitudinal strain = -18. 1 % (normal). Structurally normal valves. Ordering Physician: Natalia Roper Referring Physician: Lea Browning Arshad Performed By: Genoveva Pedro, NICOLA, RVT
== END 2024-02-28 23:59 | disposition home or self-care (01) ==
LOC: CVS 10:58
PROVIDERS: PCP Physician Assistant; Referring Provider Physician Assistant Medical; Visit Provider Physician Assistant Medical
DX: I42.9 Cardiomyopathy, unspecified (principal)
CPT/HCPCS: 93308

== ENCOUNTER → 2024-05-03 | Outpatient (CLI) | payer OTHER, SELFPAY ==
[2024-05-03 13:42] LABS: ALB/GLOB Ratio 1.3 RATIO (0.9-2.4); AST(SGOT) 20 U/L (15-37); Alanine Aminotransfer ALT/SGPT 34 U/L (13-56); Albumin, Serum 4.1 g/dL (3.2-5.0); Alkaline Phosphatase 77 U/L (45-117); Anion Gap 7 (5-15); BUN 15 mg/dL (7-18); BUN/Creat Ratio 24.9 RATIO (10-20); Calcium,Total 9.8 mg/dL (8.5-10.1); Chloride 108 mmol/L (98-107); Cholesterol 186 mg/dL (200); EST Glomerular Filtration Rate 111 mL/min (>60); Est Glom Filt Rate - Afr Amer 134 mL/min (>60); Globulin 3.1 g/dL (2.2-4.2); Glucose 93 mg/dL (74-106); High Density Lipoprotein 72 mg/dL; Potassium 3.8 mmol/L (3.5-5.1); Protein, Total 7.2 g/dL (6.4-8.2); Sodium Level 137 mmol/L (136-145); Triglycerides 53 mg/dL; Very Low Density Lipoprotein 11 mg/dL (5-40)
== END | disposition home or self-care (01) ==
LOC: LAB 12:44
PROVIDERS: PCP Physician Assistant; Referring Provider Physician Assistant; Visit Provider Physician Assistant
DX: Z13.1 Encounter for screening for diabetes mellitus (principal); E78.5 Hyperlipidemia, unspecified
CPT/HCPCS: 36415; 80053; 80061